=== PATIENT | female | born 1965 | race Caucasian/White ===

== ENCOUNTER → 2022-11-08 | Outpatient (CLI) | payer OTHER ==
[~2022-11-08] MED LIST: CRUTCH4 XX; CYCL10 PO; HYDACE5325 PO; IBUP800 PO; MULVITMIND PO; Norco 5-325 Ta1 EACH PO; OMEP20ER PO; Prinivil10 MG PO; VENL75ER PO
[2022-11-11 14:10] LABS: HPV 16 Negative (Negative); HPV 18 Negative (Negative); HPV OTHER HR TYPES Negative (Negative)
== END | disposition home or self-care (01) ==
LOC: LAB SHORT 17:54
PROVIDERS: Nurse Practitioner Family
DX: Z01.419 Encounter for gynecological examination (general) (routine) without abnormal findings (principal); Z11.51 Encounter for screening for human papillomavirus (HPV)
CPT/HCPCS: 87624; G0145